=== PATIENT | male | born 1970 | race Caucasian/White ===

== ENCOUNTER 2017-01-27 08:09 | Outpatient (CLI) | payer OTHER ==
--- NOTE | 2017-01-27 13:24 | DEXA Report ---
REVISED: REPORT ORIG. SIGNED 01/27/2017@1427; ORDERS LINKED 01/31/2017 jll DEXA SCAN: 01/27/2017 CLINICAL INDICATION: Hyperparathyroidism. TECHNIQUE: Dual energy x-ray absorptiometry (DXA) was performed on a [employer] system. Regions measured are the AP spine, femoral neck, and, if needed, forearm. COMPARISON: None; using the data from the lumbar spine, the left hip, and the left forearm. In accordance with the International Society for Clinical Densitometry (ISCD) guidelines, data from previous exams may be reanalyzed using current recommendations and techniques. This is done to allow a more accurate basis for comparison with the current study. FINDINGS LUMBAR SPINE DATA: REGION BMD (g/cm/cm) T-SCORE Z-SCORE L1 1.072 -0.7 -0.9 L2 1.209 -0.3 -0.4 L3 1.308 0.6 0.4 L4 1.278 0.3 0.2 TOTAL L1-L4 1.222 0.0 -0.1 NOTE: All evaluable vertebrae are used for classification. HIP DATA: REGION BMD (g/cm/cm) T-SCORE Z-SCORE Neck 0.939 -1.0 -0.6 TOTAL 0.976 -0.9 -0.7 NOTE: The femoral neck or total proximal femur, whichever is lowest, is used for classification. FOREARM DATA: REGION BMD (g/cm/cm) T-SCORE Z-SCORE 03/08 0.878 -1.1 -1.1 NOTE: The 33% radius of the non-dominant forearm is used for classification. IMPRESSION: THE WHO CLASSIFICATION BASED ON THE INTERNATIONAL REFERENCE STANDARD IS OSTEOPENIA. FRACTURE RISK IS INCREASED. RECOMMENDATION: Patients with diagnosis of osteoporosis or osteopenia should have regular bone mineral density assessment. For those eligible for Medicare, routine testing is allowed once every 2 years. Testing frequency can be increased for patients who have rapidly progressing disease or for those who are receiving medical therapy to restore bone mass. COMMENT: World Health Organization (WHO) definitions for osteoporosis and osteopenia: NORMAL BMD: T-score at -1.0 or higher, fracture risk is low. OSTEOPENIA BMD: T-score between -1.0 and -2.5, fracture risk is increased. OSTEOPOROSIS BMD: T-score at -2.5 or lower, fracture risk high. National Osteoporosis Foundation recommends: 1. Obtain adequate dietary calcium (at least 1200 mg per day) and vitamin D (400 -800 international units per day). 2. Participate, as appropriate, in regular weightbearing and muscle- strengthening exercise. 3. Avoid tobacco use and reduce alcohol and caffeine intake. 4. For more detailed information see the website at www.NOF.org. MTDD
== END 2017-01-27 08:10 | disposition home or self-care (01) ==
LOC: DI 08:09
DX: M85.89 Other specified disorders of bone density and structure, multiple sites (principal); E21.3 Hyperparathyroidism, unspecified
CPT/HCPCS: 77080; 77081